=== PATIENT | female | born 1940 | race Caucasian/White ===

== ENCOUNTER → 2018-07-02 | Outpatient (CLI) | payer MEDICARE, OTHER ==
--- NOTE | 2018-07-02 12:05 | RADIOLOGY REPORT (SQ) ---
EXAM DESCRIPTION: MRI LT UPPER EXTREMITY WITHOUT COMPLETED DATE/TIME: 07/02/2018 9:04 am REASON FOR STUDY: LOCALIZED SWELLING MASS AND LUMP (R22.30) R22.30 LOCALIZED SWELLING, MASS AND LUM P, UNSPECIFIED UPPER COMPARISON: None. TECHNIQUE: Multiplanar imaging to include T1-weighted images, T-2 weighted images, and gradient echo imaging. Orthogonal images orientated to the plane of the left 5th finger. Images saved to PACS. LIMITATIONS: None. FINDINGS: BONES: No generalized marrow placement. No occult fracture. LIGAMENTS: No evidence for ligamentous tear. TENDONS: Tendons are intact without evidence for tendinopathy. However, there are 2 soft tissue nodu les along the [place] superficial aspect of the 5th finger flexor tendon sheath worrisome for giant ce ll tumor. A well-circumscribed heterogeneous signal nodule is present along the palmar aspect flexor tendon she ath, at the level of the mid 5th proximal phalanx. This measures 13 mm long by 8 mm transverse by 14 mm AP. No adjacent bony erosions. 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 A well-circumscribed homogeneously decreased T1 and T2 signal nodule is present along the palmar aspe ct flexor tendon sheath 5th finger at the level of the distal phalanx. This measures 12 mm long by 6 mm AP x 10 mm transverse. No adjacent bony erosions. This is worrisome for giant cell tumor of ten don sheath. SOFT TISSUES: Muscles and subcutaneous soft tissues without significant abnormality. OTHER: No other significant finding. IMPRESSION: 2 nodules are present along the superficial aspect flexor tendon sheath 5th finger worri some for giant cell tumor of tendon sheath TECHNICAL DOCUMENTATION: JOB ID: [id number] [employer])- All Rights Reserved Reading location - IP/workstation name: [email or web address]
== END ==
LOC: RAD 07:34
PROVIDERS: ATTEND Physician Assistant
DX: R22.32 Localized swelling, mass and lump, left upper limb (principal)

== ENCOUNTER → 2020-02-14 | Outpatient (CLI) | payer MEDICARE, OTHER ==
--- NOTE | 2020-02-14 10:13 | ER RDC ASSESSMENT REPORT ---
Intake - In the Last 14 days Have you traveled outside [place]?: No Have you been in close contact with someone CONFIRMED: No Worked in Healthcare?: No - Symptoms Subjective Fever([place] feverish): No Chills: No Muscule Aches: No Runny Nose: No Sore Throat: No Cough (New or worsening chronic cough): No Shortness of breath: No Nausea or Vomiting: No Headache: No Abdominal Pain: No Diarrhea(3 or more loose stools in last 24 hours): No - Do you have any of the following Chronic lung disease: Asthma or emphysema or COPD: No Cystic Fibrosis: No Diabetes: No High Blood Pressure: No Cardiovascular Disease: Yes Cardiovascular Disease Comment: [place] sm[place] Chronic Kidney Disease: No Chronic Liver Disease: No Chronic blood disorder like Sickle Cell Disease: No Weak immune system due to disease or medication: No Neurologic condition that limits movement: No Developmental delay - Moderate to Severe: No Recent (within past 2 weeks) or current : No Morbid Obesity (>100 pounds over ideal weight): No - Objective Temperature: 97.6 F Pulse Rate: 65 Respiratory Rate: 18 Blood Pressure: 123/56 O2 Sat by Pulse Oximetry: 95 Objective: Patient is a well-appearing 79-year-old female who presents today from [facility] for pre-surgical rapid COVID-19 screening. Disposition: Home; Selfcare General - General Stated Complaint: Presurgical COVID-19 screening Mode of Arrival: Ambulatory Information source: Patient Notes: The patient presents today for Rapid COVID-19 Screening related to upcoming surgical procedure scheduled at [facility] or an affiliated facility. The patient was evaluated during the global COVID-19 pandemic, and that diagnosis was considered upon initial presentation. Their evaluation, treatment, and testing was consistent with current guidelines for patients who present with complaints or symptoms that may be related to COVID-19. - HPI Patient complains to provider of: Asymptomatic Quality of pain: No pain Severity: None Pain Level: 0 Associated symptoms: None Past Medical History - Social History Smoking Status: Never Smoker Cigarette use (# per day): No Chew tobacco use (# tins/day): No Smoking Education Provided: No Frequency of alcohol use: Occasional Drug Abuse: None Occupation: Retired Lives with: Family Patient has suicidal ideation: No Patient has homicidal ideation: No - Past Medical History Cardiac Medical History: Reports: Hx Atrial Fibrillation Physical Exam - General General appearance: Appears well In distress: None Notes: PHYSICAL EXAMINATION: GENERAL: Well-appearing and in no acute distress. HEAD: Atraumatic, normocephalic. EYES: sclera anicteric, conjunctiva are normal. ENT: nares patent. Moist mucous membranes. NECK: Normal range of motion, supple without lymphadenopathy. LUNGS: CTAB and equal. No wheezes rales or rhonchi. HEART: Regular rate and rhythm without murmurs. EXTREMITIES: Normal range of motion, no pitting edema. No cyanosis. BACK: No midline tenderness, no step-off or deformity. No CVA tenderness. NEUROLOGICAL: Cranial nerves grossly intact. Normal speech. PSYCH: Normal mood, normal affect. SKIN: Warm, Dry, normal color and turgor, no obvious lesions or rash noted. Diagnostic Results Laboratory Results: Patient has been notified their RAPID COVID-19 prescreen testing result is NEGATIVE. They have been advised to contact the referring provider to advise their testing has been completed and with negative results. Patient Education/Counseling Counseling/Education: Patient presents with upper respiratory symptoms worrisome for possible COVID- 19. Patient does not have symptoms worrisome as an emergency such as difficulty breathing, shortness of breath, chest pain, pressure, confusion or cyanosis. Patient appears suitable for discharge. Patient's vital signs are stable and patient is nontoxic in appearance. Good return precautions have been discussed with patient, patient verbalized understanding and is agreeable with discharge plan of care at this time. Patient provided COVID-19 discharge instructions to include: As a person under investigation for COVID-19, the [place] department of Health and Human Services, division of public health advises you to adhere to the following guidance until your test results are reported to you. If your test result is positive, you will receive additional information from your provider and your local health department at that time. Remain at home until you are cleared by the health provider or public health authorities. Keep a log of visitors to your home, notify any visitors to your home of your isolation status. If you plan to move to a new address or leave the county, notify the local health department in your County. Call your doctor or seek care if you have an urgent medical need. Before seeking medical care, call ahead to get instructions from the provider before arriving at the medical office clinic or hospital. Notify them that you are being tested for the virus that causes COVID-19 so that arrangements can be made, as necessary, to prevent transmission to others in the healthcare setting. Next, notify the local health department in your county. If a medical emergency arises and you need to call 911, inform dispatch and the first responders that you are being tested for the virus that causes COVID-19. Next, notify the local health department in your county. Guidance for worsening S/SX: For worsening symptoms, patient has been advised to contact their Primary Care Provider, or go to the nearest Emergency Department. RDC Discharge - Discharge Clinical Impression: COVID-19 Screening URI (upper respiratory infection) Qualifiers: URI type: unspecified URI Qualified Code(s): J06.9 - Acute upper respiratory infection, unspecified Condition: Stable Disposition: Home; Selfcare
[2020-02-14 10:14] VITALS: BP 123/56
== END ==
LOC: RDC 09:06
PROVIDERS: ATTEND Nurse Practitioner Family
DX: Z20.828 Contact with and (suspected) exposure to other viral communicable diseases (principal); J06.9 Acute upper respiratory infection, unspecified; I48.91 Unspecified atrial fibrillation
CPT/HCPCS: U0003; C9803; 87635; 99211